=== PATIENT | male | born 1980 | race Two or more races ===

== ENCOUNTER 2017-07-31 21:12 | Emergency (ER) | payer OTHER ==
[~2017-07-31] VITALS: Ht 172.7 cm; Wt 90.9 kg
[2017-07-31 21:13] VITALS: BP 136/73
== END 2017-08-01 00:13 | disposition left against medical advice (07) ==
LOC: M ED 21:12
DX: S05.90XA Unspecified injury of unspecified eye and orbit, initial encounter (principal); X58.XXXA Exposure to other specified factors, initial encounter; Y92.9 Unspecified place or not applicable; Y93.9 Activity, unspecified; Y99.9 Unspecified external cause status; Z53.21 Procedure and treatment not carried out due to patient leaving prior to being seen by health care provider

== ENCOUNTER 2018-06-05 08:27 | Emergency (ER) | payer OTHER | END 2018-06-05 09:16 | disposition home or self-care (01) | LOC: M ED 08:27 | DX: M54.42 Lumbago with sciatica, left side (principal); F17.210 Nicotine dependence, cigarettes, uncomplicated; Z88.0 Allergy status to penicillin | CPT/HCPCS: 99282 ==

== ENCOUNTER → 2023-05-24 | Outpatient (REF) ==
[~2023-05-24] MED LIST: IBUP-1022 PO; ROBA500T PO
== END ==
LOC: M PLAIMG 14:40
PROVIDERS: ATTEND Internal Medicine
DX: M54.50 Low back pain, unspecified (principal)